=== PATIENT | male | born 1955 | race Caucasian/White ===

== ENCOUNTER 2020-02-15 19:20 | Emergency (ER) | payer OTHER ==
[~2020-02-15] VITALS: Ht 177.8 cm; Wt 79.4 kg
== END 2020-02-15 23:05 | disposition home or self-care (01) ==
LOC: ER 19:20
DX: M25.551 Pain in right hip (principal); M25.552 Pain in left hip; F17.200 Nicotine dependence, unspecified, uncomplicated; Z88.5 Allergy status to narcotic agent; W18.30XA Fall on same level, unspecified, initial encounter
CPT/HCPCS: 99283; J1885

== ENCOUNTER 2020-02-16 11:59 | Emergency (ER) | payer OTHER ==
[~2020-02-16] VITALS: Ht 185.4 cm; Wt 95.2 kg
[2020-02-17] MEDS ORDERED: CHLO25 PO (04:21)
== END 2020-02-16 13:36 | disposition home or self-care (01) ==
LOC: ER 11:59
DX: F10.129 Alcohol abuse with intoxication, unspecified (principal); S00.81XA Abrasion of other part of head, initial encounter; S00.211A Abrasion of right eyelid and periocular area, initial encounter; G89.4 Chronic pain syndrome; F17.200 Nicotine dependence, unspecified, uncomplicated; Z88.5 Allergy status to narcotic agent; Z59.0 Homelessness; W18.30XA Fall on same level, unspecified, initial encounter
CPT/HCPCS: 70450; 99284-25

== ENCOUNTER 2020-02-16 21:54 | Observation (INO) | payer OTHER ==
[~2020-02-16] VITALS: Ht 177.8 cm; Wt 90.7 kg
[2020-02-17 01:13] LABS: Anion Gap 10 mmol/L (6-16); Blood Urea Nitrogen 10 mg/dL (8-24); CO2, Blood 25 mmol/L (21-32); Calcium, Blood 8.4 mg/dL (8.5-10.1); Chloride, Blood 107 mmol/L (98-108); Creatinine, Blood 0.63 mg/dL (0.60-1.20); Glomerular Filtration Rate >60 (60-); Glucose, Blood 82 mg/dL (70-99); Potassium, Blood 4.1 mmol/L (3.5-5.5); Sodium, Blood 142 mmol/L (136-145)
[2020-02-17 01:19] LABS: Ethanol (Alcohol), Blood, Med 326 mg/dL
[2020-02-17] MEDS ORDERED: CHLO25 PO (04:21)
== END 2020-02-17 05:55 | disposition home or self-care (01) ==
LOC: ER 21:54 → EOR 21:56
PROVIDERS: ADMIT Emergency Medicine
DX: F10.129 Alcohol abuse with intoxication, unspecified (principal); F17.200 Nicotine dependence, unspecified, uncomplicated; Y90.8 Blood alcohol level of 240 mg/100 ml or more
CPT/HCPCS: 36415; 80048; 99285; G0378; G0480

== ENCOUNTER 2020-02-18 05:27 | Emergency (ER) | payer OTHER ==
[~2020-02-18] VITALS: Ht 177.8 cm; Wt 95.2 kg
[~2020-02-18 05:27] MED LIST: CHLO25 PO
[2020-02-19] MEDS ORDERED: CHLO25 PO (18:24)
== END 2020-02-18 09:38 | disposition left against medical advice (07) ==
LOC: ER 05:27
DX: F10.129 Alcohol abuse with intoxication, unspecified (principal); S00.83XA Contusion of other part of head, initial encounter; F17.200 Nicotine dependence, unspecified, uncomplicated; Z59.0 Homelessness; Z88.5 Allergy status to narcotic agent; W22.8XXA Striking against or struck by other objects, initial encounter; Y92.481 Parking lot as the place of occurrence of the external cause
CPT/HCPCS: 70450; 72125; 99284-25

== ENCOUNTER 2020-02-19 18:11 | Observation (INO) | payer OTHER ==
[~2020-02-19] VITALS: Ht 182.9 cm; Wt 86.2 kg
[2020-02-19] MEDS ORDERED: CHLO25 PO (18:24)
== END 2020-02-19 21:27 | disposition home or self-care (01) ==
LOC: ER 18:11 → EOR 18:12
PROVIDERS: ADMIT Emergency Medicine
DX: F10.129 Alcohol abuse with intoxication, unspecified (principal); Z88.5 Allergy status to narcotic agent; F17.200 Nicotine dependence, unspecified, uncomplicated

== ENCOUNTER 2020-02-20 00:22 | Emergency (ER) | payer OTHER ==
[~2020-02-20] VITALS: Ht 182.9 cm; Wt 99.8 kg
== END 2020-02-20 00:25 | disposition home or self-care (01) ==
LOC: ER 00:22
DX: F10.129 Alcohol abuse with intoxication, unspecified (principal); F17.200 Nicotine dependence, unspecified, uncomplicated; Z88.5 Allergy status to narcotic agent
CPT/HCPCS: 99283